=== PATIENT | female | born 1965 | race Caucasian/White ===

== ENCOUNTER → 2021-12-24 | Outpatient (REF) | payer BC | LOC: M SFHCDERM 16:08 | PROVIDERS: ATTEND Nurse Practitioner Family | DX: L82.1 Other seborrheic keratosis (principal) ==

== ENCOUNTER → 2025-02-11 | Outpatient (CLI) | payer OTHER ==
[2025-02-11 14:48] LABS: BASO # 0.0 10^3/uL (0.0-0.2); BASO % 0.7 % (0.0-1.0); EOS # 0.1 10^3/uL (0.0-0.5); EOS % 1.7 % (0.0-3.0); LYMPH # 1.7 10^3/uL (1.5-5.0); LYMPH % 30.4 % (24.0-44.0); MONO # 0.4 10^3/uL (0.0-0.8); MONO % 6.3 % (2.0-8.0); NEUTROPHILS # 3.5 10^3/uL (1.5-8.5); NEUTROPHILS % 60.7 % (36.0-66.0); PLATELET COUNT, AUTOMATED 189 10^3/uL (150-450)
[2025-02-11 15:14] LABS: CALCIUM LEVEL 10.5 MG/DL (8.3-10.6); CARBON DIOXIDE LEVEL 31.0 MMOL/L (20-31); CHLORIDE LEVEL 102.0 MMOL/L (98-107); CREATININE FOR GFR 0.8 MG/DL (0.55-1.30); GLOMERULAR FILTRATION RATE 84.3 (>45); POTASSIUM SERUM 4.2 MMOL/L (3.5-5.1); SODIUM LEVEL 142.0 MMOL/L (136-145)
== END ==
LOC: M LAB 14:16
PROVIDERS: ATTEND Nurse Practitioner Family
DX: Z01.818 Encounter for other preprocedural examination (principal)

== ENCOUNTER → 2025-05-26 | Outpatient (CLI) | payer OTHER ==
[2025-05-26 13:16] LABS: BASO # 0.0 10^3/uL (0.0-0.2); BASO % 0.8 % (0.0-1.0); EOS # 0.1 10^3/uL (0.0-0.5); EOS % 1.8 % (0.0-3.0); LYMPH # 1.6 10^3/uL (1.5-5.0); LYMPH % 41.0 % (24.0-44.0); MONO # 0.2 10^3/uL (0.0-0.8); MONO % 6.0 % (2.0-8.0); NEUTROPHILS # 1.9 10^3/uL (1.5-8.5); NEUTROPHILS % 50.4 % (36.0-66.0); PLATELET COUNT, AUTOMATED 189 10^3/uL (150-450)
[2025-05-26 13:27] LABS: ESTIMATED AVERAGE GLUCOSE 97.0 MG/DL (60-110)
[2025-05-26 13:39] LABS: CALCIUM LEVEL 10.3 MG/DL (8.3-10.6); CARBON DIOXIDE LEVEL 30.0 MMOL/L (20-31); CHLORIDE LEVEL 104.0 MMOL/L (98-107); CHOLESTEROL LEVEL 184.0 MG/DL (<200); CHOLESTEROL RISK RATIO 2.57 (<5); CREATININE FOR GFR 0.77 MG/DL (0.55-1.30); GLOMERULAR FILTRATION RATE 88.3 (>45); LDL CHOLESTEROL 85.1 MG/DL (<100); NON-HDL-C 112.5 MG/DL; POTASSIUM SERUM 4.0 MMOL/L (3.5-5.1); SODIUM LEVEL 141.0 MMOL/L (136-145); TRIGLYCERIDES LEVEL 137.0 MG/DL (<150)
[2025-05-26 13:42] LABS: FREE T4 1.81 NG/DL (0.89-1.76)
== END ==
LOC: M LAB 12:55
PROVIDERS: ATTEND Registered Nurse
DX: Z01.818 Encounter for other preprocedural examination (principal); E03.9 Hypothyroidism, unspecified; E78.2 Mixed hyperlipidemia